=== PATIENT | female | born 1990 | race American Indian/Alaskan Native ===

== ENCOUNTER 2018-05-30 10:56 | Emergency (ER) | payer OTHER ==
[2018-05-30] MEDS ORDERED: NACL 0.9% 1000 ML 1,000 ML IV ONE (11:08)
[2018-05-30 11:33] LABS: Hematocrit 42.4 % (30.3-42.9); Hemoglobin 13.6 gm/dl (10.1-14.3); Mean Corpuscular HGB Conc 32 % (30-34); Mean Corpuscular Hemoglobin 28 pg (28-32); Mean Corpuscular Volume 87 fl (79-97); Platelet Count 407 K/mm3 (140-440)
--- NOTE | 2018-05-30 11:42 | Emergency Department Report ---
HPI - General Chief Complaint: Abdominal Pain Time Seen by Provider: 05/30/18 11:25 - HPI HPI: The patient is a 27-year-old female with a history of ulcerative colitis, whom presents for evaluation of abdominal pain. The patient reports abdominal pain for the past one week, pressure-like in quality, currently 9/10 in severity, exacerbated with dry heaves, and associated with nausea without emesis and loose watery stools, void of blood. The patient denies fever, chills, night sweats, hematemesis, dysuria, hematuria, flank pain, genital discharge, vaginal bleeding, inability to pass flatus. ED Past Medical Hx - Past Medical History Previous Medical History?: Yes Additional medical history: Ulcerative Colitis - Surgical History Past Surgical History?: No - Social History Smoking Status: Never Smoker Substance Use Type: None - Medications Home Medications: Home Medications Medication Instructions Recorded Confirmed Last Taken Type Ondansetron [Zofran TAB] 4 mg PO Q8HR PRN #20 tablet 05/30/18 Unknown Rx Prednisone [predniSONE 10 mg 10 mg PO .TAPER #1 tab.ds.pk 05/30/18 Unknown Rx (6-Day Pack, 21 Tabs)] traMADol [Ultram 50 MG tab] 50 mg PO Q6HR PRN #15 tablet 05/30/18 Unknown Rx ED Review of Systems ROS: Stated complaint: ULCERATIVE COLITIS Other details as noted in HPI Constitutional: denies: fever ENT: denies: throat or neck pain Respiratory: denies: cough, shortness of breath Cardiovascular: denies: chest pain Endocrine: denies unexplained weight loss or gain Gastrointestinal: reports abdominal pain, nausea Genitourinary: denies: dysuria Musculoskeletal: denies: leg swelling Skin: denies: rash Neurological: denies headache Hematological/Lymphatic: denies: easy bleeding or easy bruising Psych: denies sadness or hopelessness Physical Exam - Physical Exam Vital Signs: Vital Signs 05/30/18 11:05 Temperature 97.8 F Pulse Rate 62 Respiratory 16 Rate Blood Pressure 120/75 O2 Sat by Pulse 99 Oximetry Physical Exam: General: well-nourished, well-developed, no acute distress Head: Normocephalic, atraumatic Eyes: normal sclera ENT: Mucous membranes are pale and dry Neck: trachea midline, neck supple, No neck stiffness, no cervical adenopathy Respiratory: Breath sounds equal bilaterally, no wheezing, rales, or rhonchi Cardio: S1 and S2 present, no murmurs, rubs, gallops, capillary refill is delayed Abdomen: Normoactive bowel sounds, soft abdomen, generalized tenderness to palpation present, no rigidity, no guarding or rebound tenderness Chest WALL/Back: No tenderness to palpation of the chest wall, no CVA tenderness with percussion Musc: No pitting edema Skin: No rash Neuro: no facial drooping, normal speech Psych: Normal affect ED Course Vital Signs 05/30/18 11:05 Temperature 97.8 F Pulse Rate 62 Respiratory 16 Rate Blood Pressure 120/75 O2 Sat by Pulse 99 Oximetry ED Medical Decision Making - Lab Data Result diagrams: 05/30/18 11:15 05/30/18 11:15 - Medical Decision Making The patient was seen and examined by myself. The patient is placed on a site monitor and continuous pulse ox. On initial evaluation, the patient was found to be in no distress. Evaluation orders are placed. IV access is established and the patient is given 1 L normal saline fluid bolus and Zofran for nausea, and IV Toradol and IV fentanyl for her pain. She is given Solu- Medrol as requested for treatment of UC flare. Lab results were non-concerning including WBC, hemoglobin, hematocrit, electrolytes, renal function, LFTs, neg preg, and urinalysis. The patient was reevaluated and reported that their symptoms were markedly improved. The patient is stable for discharge with outpatient follow-up. The patient is given follow-up and return instructions. The patient expressed understanding and agreed with the plan. The patient is discharged in stable condition. Critical care attestation.: If time is entered above; I have spent that time in minutes in the direct care of this critically ill patient, excluding procedure time. ED Disposition Clinical Impression: Abdominal pain, acute, periumbilical, Dehydration, Nausea and vomiting in adult Disposition: DC-01 TO HOME OR SELFCARE Is pt being admited?: No Does the pt Need Aspirin: No Condition: Stable Instructions: Abdominal Pain (ED), Ulcerative Colitis (ED) Referrals: PRIMARY CARE, [Primary Care Provider] - 3-5 Days [facility] [Outside] - 3-5 Days Time of Disposition: 12:40
[2018-05-30 11:53] LABS: Alanine Aminotransferase 11 units/L (7-56); Albumin 4.3 g/dL (3.9-5); BUN/Creatinine Ratio 10; Blood Urea Nitrogen 6 mg/dL (7-17); Calcium 9.3 mg/dL (8.4-10.2); Hemolysis Index 43
[2018-05-30 12:16] VITALS: BP 120/71
[2018-05-30 12:18] LABS: Bacteria,Urine 1+ /HPF (Negative); Bilirubin,Urine NEG (Negative); Blood,Urine SM (Negative); Color,Urine Yellow (Yellow); Protein,Urine <15 mg/dL mg/dL (Negative); Urobilinogen,Urine < 2.0 mg/dL (<2.0)
[2018-05-30] MEDS ORDERED: TORADOL IV ONE (12:19)
[2018-05-30] MEDS ORDERED: DELTASONE PO ONE (12:19)
[2018-05-30] MEDS ORDERED: NORCO 5/325 PO ONE (12:19)
[2018-05-30] MEDS ORDERED: SUBLIMAZE IV ONE (12:23)
[2018-05-30] MEDS ORDERED: ZOFRAN IV ONE (12:23)
[2018-05-30 12:28] LABS: Basophils % (Manual) 0 % (0.0-1.8); Smudge Cells Few; Total Cells Counted 100
[2018-05-30 12:29] LABS: Acanthocytes Few; Anisocytosis 1+; Ovalocytes 1+; Platelet Estimate Cons; Poikilocytosis 1+
== END 2018-05-30 13:53 | disposition home or self-care (01) ==
LOC: ED 10:56
DX: E86.0 Dehydration (principal); R11.2 Nausea with vomiting, unspecified; R10.33 Periumbilical pain
CPT/HCPCS: 36415; 80053; 81001; 84703; 85007; 85025; 96361; 96374; 96375; 99284; J1885; J2405; J2930; J3010; J7030